=== PATIENT | female | born 1970 | race Caucasian/White ===

== ENCOUNTER 2021-12-09 06:52 | Day surgery (SDC) | payer BC ==
[~2021-12-09 06:52] MED LIST: Lactated Ringers 1,000 ML IV SCH; Sodium Chloride 0.9% 10 ML Syringe FLUSH PRN
[2021-12-09] MEDS ORDERED: Propofol 200 MG/20 ML SDV IV ONE (06:53)
[2021-12-09] MEDS ORDERED: Lidocaine 1% PF 2 ML SDV INJECT ONE (06:53)
== END 2021-12-09 08:25 | disposition home or self-care (01) ==
LOC: FB.SDS 06:52
PROVIDERS: ATTEND Surgery
DX: Z12.11 Encounter for screening for malignant neoplasm of colon (principal); I10 Essential (primary) hypertension; K21.9 Gastro-esophageal reflux disease without esophagitis; E66.9 Obesity, unspecified; Z88.0 Allergy status to penicillin; Z88.1 Allergy status to other antibiotic agents; Z68.36 Body mass index [BMI] 36.0-36.9, adult; Z79.899 Other long term (current) drug therapy; Z80.0 Family history of malignant neoplasm of digestive organs
CPT/HCPCS: 00812; 45378; 81025; J2704; J7120